=== PATIENT | female | born 1990 | race Caucasian/White ===

== ENCOUNTER 2018-07-20 09:13 | Emergency (ER) | payer SELFPAY ==
[~2018-07-20] VITALS: Ht 170.2 cm; Wt 116.4 kg
[~2018-07-20 09:13] MED LIST: ANAPROX DS550 MG PO; BUSPAR DIVIDOSE15 MG; BUSPAR5 MG PO; CIPRO 500MG TA500 MG PO; CLEOCIN HC150 MG/CAP PO; CLINDAMYCIN HC300 MG PO; CLOMID50 MG PO; COLACE 100100 MG/CAP PO; DILAUDID 2MG TAB2 MG PO; FLAGYL500 MG PO; FLEXERIL10 MG PO; KLONOPIN 0.5MG0.5 MG PO; LEVAQUIN; LEVAQUIN 750MG750 M1 PO; LORTAB 5/500 501 TAB PO; MOTRIN 800800 MG/TAB PO; NAPROSYN375 MG PO; NAPROSYN500 MG PO; NO HOME MEDICATIONS; NORCO 325 MG-51 TAB PO; NORCO 325 MG-7.1 TAB PO; OPANA ER15 MG; PEPCID 20MG TAB20 MG PO; PERCOCET 5/321 UDTAB PO; PHENERGAN 25 TA25 MG PO; PHENERGAN25 MG RC; PREDNISONE20 MG PO; PRENATAL1 TA4 PO; PRIL40 PO; PROVERA5 MG PO; PYRIDIUM200 M1 PO; REGLAN10 MG PO; ROXICODONE 55 MG/TAB; ROXICODONE15 MG; ROXICODONE15 MG PO; RT ADVAIR 228 DISKUS IH; SEROQUEL300 MG PO; SOMA 350MG350 MG/TAB PO; TOPAMAX 100MG100 M1; TUSS PO; ULTRAM50 MG PO; VENTOLIN0.09 MG IH; VICODIN 5/5001 UDTAB PO; ZANAFLEX CAPSULE4 MG PO; ZITHROMAX 250M250 MG PO; ZOFRAN 4MG T4 MG/TAB PO; ZOFRAN4 M1 PO; ZOLOFT 50MG50 MG
[2018-07-20 09:14] VITALS: BP 124/80; TEMP 97.5
[2018-07-20] MEDS ORDERED: ADVIL200 MG PO (09:20)
[2018-07-20] MEDS ORDERED: DOXYCYCLINE 10100 MG PO (09:52)
[2018-07-20 10:07] VITALS: PULSE 98
== END 2018-07-20 10:07 | disposition home or self-care (01) ==
LOC: COL.ER 09:13
DX: L02.91 Cutaneous abscess, unspecified (principal); G43.909 Migraine, unspecified, not intractable, without status migrainosus; F17.210 Nicotine dependence, cigarettes, uncomplicated; F41.9 Anxiety disorder, unspecified; F32.9 Major depressive disorder, single episode, unspecified; Z88.0 Allergy status to penicillin

== ENCOUNTER 2020-06-10 11:18 | Emergency (ER) | payer SELFPAY ==
[~2020-06-10] VITALS: Ht 170.2 cm; Wt 131.8 kg
[~2020-06-10 11:18] MED LIST changes: +ADVIL200 MG PO; +DOXYCYCLINE 10100 MG PO
[2020-06-10 11:29] VITALS: TEMP 98.4
[2020-06-10] MEDS ORDERED: NORCO 325 MG-51 TAB PO ×2 (13:14)
[2020-06-10] MEDS ORDERED: CEPHALEXIN500 M1 PO (13:15)
[2020-06-10 13:50] VITALS: BP 130/89; PULSE 105
== END 2020-06-10 13:54 | disposition home or self-care (01) ==
LOC: COL.ER 11:18
DX: S91.012A Laceration without foreign body, left ankle, initial encounter (principal); S00.83XA Contusion of other part of head, initial encounter; W10.8XXA Fall (on) (from) other stairs and steps, initial encounter
CPT/HCPCS: J2405; J3010

== ENCOUNTER 2022-04-10 23:43 | Inpatient (IN) | payer SELFPAY ==
[~2022-04-10] VITALS: Ht 170.2 cm; Wt 137.8 kg
[~2022-04-10 23:43] MED LIST changes: +CEPHALEXIN500 M1 PO
[2022-04-11] VITALS (12 sets, daily range): BP systolic 97–146; BP diastolic 4–98; PULSE 88–109; TEMP 97.4–98.3
[2022-04-11] MEDS ORDERED: AMBIEN 10MG10 MG PO (00:42)
[2022-04-11] MEDS ORDERED: KLONOPIN 1MG1 MG PO (00:43)
[2022-04-11] MEDS ORDERED: ABILIFY 10MG TA10 MG PO (00:44)
[2022-04-11] MEDS ORDERED: LAMICTAL150 MG PO (00:45)
[2022-04-11] MEDS ORDERED: FLEXERIL 1010 MG/TAB PO (00:46)
[2022-04-11] MEDS ORDERED: VICOPROFEN 7.51 TAB PO (00:47)
[2022-04-11] MEDS ORDERED: EFFEXOR-XR150 MG PO (01:13)
--- NOTE | 2022-04-11 09:53 | NUR ---
PT RESTING IN BED. MORNING MEDICATIONS GIVEN WITH SIP OF WATER. PT REMAINS NPO FOR STRESS TEST. SHIFT ASSESSMENT COMPLETED. PT UPDATED ON POC. PT REPORTS CHEST PAIN AT 9/10, MEDICATION GIVEN PER eMAR. DENIES ANY OTHER NEEDS AT THIS TIME. WILL CONTINUE TO MONITOR.
--- NOTE | 2022-04-11 12:52 | NUR ---
fuller brush worker met with patient to complete intake. Patient reports that she lives at home alone in [place]. Patient is independent with her ADL's and does not utilize any DME to assist with mobility. Patient has no home oxygen needs. PCP is Dr. Guerrero and she utilizes [facility] pharmacy in for prescriptions with no cost difficulty. Patient does not currently have a DPOA-HC established but would like to establish one listing her mother and a friend. Signed copy witnessed by this SW and KELVIN Koenig. Signed copy placed in the patient's chart and original provided back to the patient. Patient is planning on returning home once medically ready. Patient reports that she has [employer] and provided this SW with insurance card. Copy made and sent to case management team. Discharge plan: Home
[2022-04-11 15:05] LABS: COLLECTION METHOD CLEAN CATCH
[2022-04-11 15:11] LABS: MUCOUS Present (NOT PRESENT); PH 6 (5-8); SQUAMOUS EPITHELIAL 0-2 /hpf (0-10); URINE APPEARANCE Clear (CLEAR/HAZY); URINE BACTERIA None Seen /hpf (NONE SEEN); URINE BLOOD 1+ (NEGATIVE); URINE COLOR Yellow (YELLOW); URINE GLUCOSE Negative (NEGATIVE); URINE KETONE Negative (NEGATIVE); URINE NITRATE Negative (NEGATIVE); URINE PROTEIN(semi-quant) Negative (NEGATIVE); URINE RBC 0-2 /hpf (0-2); URINE UROBILINOGEN Negative (NEGATIVE)
[2022-04-12 04:39] VITALS: BP 149/79; PULSE 90; TEMP 97.7
[2022-04-12 06:17] LABS: BASO % 0.7 % (0.0-2.0); EOS # 0.1 K/mm3 (0.0-0.7); EOS % 1.3 % (0.0-4.0); GRAN # 3.1 K/mm3 (1.4-6.5); HEMATOCRIT 38.5 % (37.0-47.0); LYMPH % 33.7 % (20.0-51.0); MEAN CELL VOLUME 94 fl (80.0-100.0); MEAN CORPUSCULAR HEMOGLOBIN 32 pg (27-31); MEAN CORPUSCULAR HGB CONC 34 g/dl (33.0-37.0); MEAN PLATELET VOLUME 9.2 fl (7.4-10.4); MONO # 0.7 K/mm3 (0.1-0.6); MONO % 12.1 % (1.7-9.3); PLATELET COUNT 235 K/mm3 (130-400); REDCELL DISTRIBUTION WIDTH-CV 12.1 % (11.5-14.5)
[2022-04-12 06:42] LABS: ALBUMIN 3.2 gm/dL (3.5-5.0); CALCIUM 8.5 mg/dL (8.4-10.2); CREATININE, serum 0.6 mg/dL (0.57-1.11); MAGNESIUM 2.1 mg/dL (1.6-2.6); PHOSPHOROUS 4.1 mg/dL (2.3-4.7); POTASSIUM 4.1 mmol/L (3.5-4.5)
[2022-04-12 08:24] VITALS: BP 128/74; PULSE 87; TEMP 98.3
[2022-04-12] MEDS ORDERED: CARDIZEM CD 18180 MG PO (08:46)
[2022-04-12] MEDS ORDERED: PROTONIX 40MG T40 MG PO (08:55)
--- NOTE | 2022-04-12 12:56 | NUR ---
PT IS ALERT AND ORIENT, DENIES COMPLAINTS AT THIS TIME.
--- NOTE | 2022-04-12 13:02 | NUR ---
PT DUE MEDICATIONS GIVEN, NO ADVERSE REACTION GIVE. DC HOME, IV DC,TIP INTACT,TELE REMOVED DC SUMMARY GIVEN AND INSTRUCTION GIVEN,VERBALIZE UNDERSTANDING ESCORTED OUT OF THE UNIT AMBULATORY IN COMPANY OF RELATIVE.
== END 2022-04-12 11:00 | disposition home or self-care (01) | DRG 313 ==
LOC: MEDICAL 23:43
PROVIDERS: Nurse Practitioner Family; ADMIT Family Medicine
DX: R07.89 Other chest pain (principal); J96.01 Acute respiratory failure with hypoxia; I31.3 Pericardial effusion (noninflammatory); Z68.42 Body mass index [BMI] 45.0-49.9, adult; R42 Dizziness and giddiness; I10 Essential (primary) hypertension; I07.1 Rheumatic tricuspid insufficiency; G47.00 Insomnia, unspecified; F17.210 Nicotine dependence, cigarettes, uncomplicated; E66.01 Morbid (severe) obesity due to excess calories; G89.29 Other chronic pain; F32.A Depression, unspecified; F41.9 Anxiety disorder, unspecified; G43.909 Migraine, unspecified, not intractable, without status migrainosus; K21.9 Gastro-esophageal reflux disease without esophagitis; M25.562 Pain in left knee; M25.561 Pain in right knee; Z88.1 Allergy status to other antibiotic agents; Z88.0 Allergy status to penicillin; Z88.2 Allergy status to sulfonamides; Z88.8 Allergy status to other drugs, medicaments and biological substances
CPT/HCPCS: OP; 99239; A9500; J1650; J2270; J2785; J7030